=== PATIENT | female | born 1950 | race Two or more races ===

== ENCOUNTER 2022-03-18 06:00 | Day surgery (SDC) | payer OTHER ==
[~2022-03-18 06:00] MED LIST: LISINOPRIL5 MG PO; MACROBID 100 M100 MG PO; METFORMIN HCL500 MG PO; PRILOSEC10 MG PO; ULTRACET PO; ZOCOR40 MG PO
== END 2022-03-18 11:30 | disposition home or self-care (01) ==
LOC: AMB-ENDOS 06:00
PROVIDERS: ATTEND Colon & Rectal Surgery
DX: D12.5 Benign neoplasm of sigmoid colon (principal); Z86.010 Personal history of colon polyps; K64.2 Third degree hemorrhoids; N81.10 Cystocele, unspecified; Z20.822 Contact with and (suspected) exposure to COVID-19; E10.9 Type 1 diabetes mellitus without complications; E78.5 Hyperlipidemia, unspecified; I10 Essential (primary) hypertension; Z79.82 Long term (current) use of aspirin